=== PATIENT | female | born 1990 ===

== ENCOUNTER → 2019-12-21 15:35 | Observation (INO) ==
[2019-12-21 14:13] LABS: Basophils % 0.2 %; Eosinophils # 0.3 K/mcL (0.0-0.6); Eosinophils % 2.9 %; Hematocrit 36.2 % (35.3-44.9); Hemoglobin 11.7 g/dL (11.5-15.4); Immature Granulocytes % 0.3 % (0-4); Immature Platelets 25.8 % (1.1-6.1); Lymphocytes # 1.6 K/mcL (0.6-4.6); Lymphocytes % 17.4 %; Mean Corpuscular HGB Conc 32.3 g/dL (31.6-35.5); Mean Corpuscular Hemoglobin 27.3 pg (28.0-33.3); Mean Corpuscular Volume 84.4 fL (83.0-100.0); Mean Platelet Volume 13.6 fL (9.4-12.4); Monocytes # 0.7 K/mcL (0.0-1.3); Monocytes % 7.2 %; Neutrophils # 6.5 K/mcL (1.6-8.9); Platelet Count 127 K/mcL (140-400); Red Blood Count 4.29 M/mcL (3.82-4.97); Red Cell Distribution Width 13.9 % (11.5-14.5)
[2019-12-21 14:20] LABS: Protein/Creatinine Ratio,Urine 0.94 mg/mg (0.00-0.20)
[2019-12-21 14:31] LABS: Alanine Aminotransferase 13 Units/L (7-52); Aspartate Amino Transferase 16 Units/L (13-39); BUN/Creatinine Ratio 15 (6-26); Blood Urea Nitrogen 11 mg/dL (6-20); Lactate Dehydrogenase 155 Units/L (140-271); Uric Acid 6.2 mg/dL (2.3-7.6); eGFR For African Americans > 60 (> 60); eGFR For Non-African Americans > 60 (> 60)
== END | disposition home or self-care (01) ==
LOC: 1NENULAB
PROVIDERS: ADMIT Obstetrics & Gynecology; ATTEND Obstetrics & Gynecology

== ENCOUNTER 2019-12-23 13:45 | Inpatient (IN) ==
[~2019-12-23 13:45] MED LIST: Aminoglycoside Consult 1 EACH MC ONE
[2019-12-23] MEDS ORDERED: Naloxone 0.4 MG/ML INJ IVP PRN (14:38)
[2019-12-23] MEDS ORDERED: Metoclopramide 10 MG/2 ML VIAL IVP PRN (14:38)
[2019-12-23] MEDS ORDERED: Famotidine 20 MG/2 ML VIAL IVP PRN (14:38)
[2019-12-23 15:03] LABS: Mean Platelet Volume 13.6 fL (9.4-12.4)
[2019-12-23 15:06] LABS: Basophils % 0.1 %; Eosinophils # 0.2 K/mcL (0.0-0.6); Hematocrit 36.8 % (35.3-44.9); Hemoglobin 11.9 g/dL (11.5-15.4); Immature Granulocytes % 0.3 % (0-4); Immature Platelets 25.3 % (1.1-6.1); Lymphocytes # 1.4 K/mcL (0.6-4.6); Lymphocytes % 17.8 %; Mean Corpuscular HGB Conc 32.3 g/dL (31.6-35.5); Mean Corpuscular Hemoglobin 26.9 pg (28.0-33.3); Mean Corpuscular Volume 83.3 fL (83.0-100.0); Monocytes # 0.7 K/mcL (0.0-1.3); Monocytes % 9.1 %; Neutrophils # 5.3 K/mcL (1.6-8.9); Platelet Count 126 K/mcL (140-400); Red Blood Count 4.42 M/mcL (3.82-4.97); Red Cell Distribution Width 14.2 % (11.5-14.5); Segmented Neutrophils % 69.7 %; White Blood Count 7.6 K/mcL (4.3-11.1)
[2019-12-23 15:10] LABS: Amphetamine Screen,Urine Negative ng/mL (Cutoff=1000); Barbiturate Screen,Urine Negative ng/mL (Cutoff=200); Benzodiazepines Screen,Urine Negative ng/mL (Cutoff=200); Cannabinoid Screen,Urine Negative ng/mL (Cutoff = 50); Cocaine Screen,Urine Negative ng/mL (Cutoff= 300); Opiate Screen,Urine Negative ng/mL (Cutoff=300); Phencyclidine Screen,Urine Negative ng/mL (Cutoff=25)
[2019-12-23 15:28] LABS: Aspartate Amino Transferase 17 Units/L (13-39); BUN/Creatinine Ratio 18 (6-26); Blood Urea Nitrogen 12 mg/dL (6-20); Calcium 8.8 mg/dL (8.6-10.3); Carbon Dioxide 19 mEq/L (23-29); Chloride 104 mEq/L (98-107); Glucose 99 mg/dL (70-105); Osmolality,Calculated 280 (280-300); Potassium 3.9 mEq/L (3.5-5.1); Sodium 135 mEq/L (136-145); eGFR For African Americans > 60 (> 60); eGFR For Non-African Americans > 60 (> 60)
[2019-12-23] MEDS: miSOPROStoL 25 MCG TABLET PO PRN ×2 (15:47→20:02)
[2019-12-23] MEDS: Ringers Solution, Lactated 1,000 ML IVC SCH (15:48)
[2019-12-23] MEDS: Vancomycin 1,500 MG/265 ML IV.SOLN IVPB SCH (16:03)
[2019-12-23] MEDS ORDERED: EPHEDrine 50 MG/ML VIAL IVP PRN (18:02)
[2019-12-23] MEDS ORDERED: Epidural Premix (fent/bupiv) 110 ML EP SCH (18:15)
[2019-12-24] MEDS: Vancomycin 1,500 MG/265 ML IV.SOLN IVPB SCH ×2 (00:24→08:53)
[2019-12-24] MEDS: Ringers Solution, Lactated 1,000 ML IVC SCH (00:25)
[2019-12-24] MEDS ORDERED: Oxytocin 20 units/ LR 1000 mL 20 UNIT/1,000 ML BAG IVC SCH ×2 (01:00→17:49)
[2019-12-24] MEDS ORDERED: Bupivacaine-MPF 0.25% 10 ML VIAL ONE (03:09)
[2019-12-24] MEDS ORDERED: *HR* FentaNYL (PF) 100 MCG/2 ML VIAL ONE (03:09)
[2019-12-24] MEDS ORDERED: Vancomycin 1,500 MG/265 ML IV.SOLN IVPB SCH (09:00)
[2019-12-24] MEDS ORDERED: Lidocaine 1% 20 ML MDV ONE (13:29)
[2019-12-24] MEDS ORDERED: Lanolin 7 G OINT...G. TP PRN (17:49)
[2019-12-24] MEDS ORDERED: Benzocaine/Menthol 56 GM AEROSOL SPRAY TP PRN (17:49)
[2019-12-24] MEDS: Ibuprofen 600 MG TABLET PO SCH (18:12)
[2019-12-24] MEDS: Acetaminophen 325 MG TABLET PO SCH (20:16)
[2019-12-25] MEDS: Acetaminophen 325 MG TABLET PO SCH (00:01)
[2019-12-25 04:25] LABS: Alanine Aminotransferase 20 Units/L (7-52); BUN/Creatinine Ratio 10 (6-26); Blood Urea Nitrogen 16 mg/dL (6-20); Uric Acid 8.5 mg/dL (2.3-7.6); eGFR For African Americans 45 (> 60); eGFR For Non-African Americans 37 (> 60)
[2019-12-25] MEDS: Ibuprofen 600 MG TABLET PO SCH ×2 (07:46)
[2019-12-25 08:28] VITALS: BP 124/84
[2019-12-25] MEDS ORDERED: Prenatal Vit/FA 1 EACH TABLET PO SCH (09:00)
== END 2019-12-25 14:55 | disposition home or self-care (01) | DRG 807 ==
LOC: 1NENULAB 13:45 → 1NENUOBS 12-24 17:17
PROVIDERS: ADMIT Student in an Organized Health Care Education/Training Program; ATTEND Student in an Organized Health Care Education/Training Program